=== PATIENT | male | born 1950 | race Caucasian/White ===

== ENCOUNTER 2016-08-11 09:46 | Inpatient (IN) | payer OTHER ==
[~2016-08-11] VITALS: Ht 190.5 cm; Wt 111.3 kg
[2016-08-11 11:32] LABS: HEMATOCRIT 40.8 % (38.0-50.0); MCH 31.3 PG (29.0-34.0); MCHC 33.6 G/DL (30.0-36.0); MCV 93.2 FL (86-99); MEAN PLAT.VOLUME 10.3 uM^3 (9.0-12.4); PLATELET COUNT 279 K/uL (156-360); RBC DIS.WIDTH-CV 15.5 % (11.8-14.6); RBC DIS.WIDTH-SD 49.6 % (39-53); RED BLOOD COUNT 4.38 M/uL (4.00-5.50); WHITE BLOOD COUNT 13.1 K/uL (4.1-10.2)
[2016-08-11 11:45] LABS: CHLORIDE 106 mEq/L (99-109); POTASSIUM 4.4 mEq/L (3.7-5.4); SODIUM 139 mEq/L (136-147)
[2016-08-11 11:46] LABS: GLUCOSE 101 mg/dL (70-99)
[2016-08-11 11:48] LABS: ANION GAP 11 MEQ/L (2-14)
[2016-08-11 11:50] LABS: GFR ESTIMATE (CALCULATED) > 59 mL/min/
[2016-08-11 11:51] LABS: UREA NITROGEN (BUN) 17 mg/dL (9-23)
[2016-08-11 11:59] LABS: TROP-I INTERPRETATION NEGATIVE; TROPONIN-I < 0.01 ng/mL (0.0-0.30)
[2016-08-11] MEDS ORDERED: SIMVASTATIN40 MG PO (14:31)
[2016-08-11] MEDS ORDERED: PLAVIX75 MG PO (14:32)
[2016-08-11] MEDS ORDERED: TRAZODONE HCL300 MG PO (14:32)
[2016-08-11] MEDS ORDERED: OMEPRAZOLE20 MG PO (14:32)
[2016-08-11] MEDS ORDERED: ASPIR 8181 M1 PO (14:32)
[2016-08-11] MEDS ORDERED: PROVENTIL HFA6.7 GM IH (14:33)
[2016-08-11] MEDS ORDERED: SPIRIVA1 INHALATI IH (14:33)
[2016-08-11] MEDS ORDERED: SYMBICORT60 INHALAT IH (14:33)
[2016-08-11 15:36] LABS: CARBON DIOXIDE (BICARBONATE) 26.8 MEQ/L (20-31)
[2016-08-11 18:50] VITALS: BP 119/62
[2016-08-11 23:08] VITALS: BP 132/78
[2016-08-12 08:46] VITALS: BP 140/73
[2016-08-12 22:40] VITALS: BP 145/68
[2016-08-13 07:30] VITALS: BP 133/70
[2016-08-13] MEDS ORDERED: PREDNISONE10 MG PO (08:35)
[2016-08-13] MEDS ORDERED: ZITHROMAX250 MG PO (08:35)
== END 2016-08-13 13:26 | disposition home or self-care (01) | DRG 192 ==
LOC: EME 09:46 → 5EAST 14:53 → EDOF 14:53 → 5EAST 19:02
PROVIDERS: Nurse Practitioner Family
DX: J44.1 Chronic obstructive pulmonary disease with (acute) exacerbation (principal); E78.5 Hyperlipidemia, unspecified; K21.9 Gastro-esophageal reflux disease without esophagitis; I73.9 Peripheral vascular disease, unspecified; Z98.62 Peripheral vascular angioplasty status; Z87.891 Personal history of nicotine dependence; Z88.0 Allergy status to penicillin; Z79.02 Long term (current) use of antithrombotics/antiplatelets; Z79.82 Long term (current) use of aspirin
CPT/HCPCS: 71020; 80048; 82803; 84484; 85027; 93005; 94640; 94640 76; 94799; 99202; 99281; 99285; J0456; J1650; J2920; J2930

== ENCOUNTER → 2017-05-27 | Outpatient (CLI) | payer OTHER ==
[~2017-05-27] VITALS: Ht 193 cm; Wt 113.4 kg
[~2017-05-27] MED LIST: ASPIR 8181 M1 PO; CILOSTAZOL100 MG PO; OMEPRAZOLE20 MG PO; PLAVIX75 MG PO; PREDNISONE10 MG PO; PROVENTIL HFA6.7 GM IH; PROVENTIL,2.5 MG/3 M IH; SIMVASTATIN40 MG PO; SPIRIVA1 INHALATI IH; SYMBICORT60 INHALAT IH; TRAZODONE HCL300 MG PO; VITAMIN D31000 UNIT PO; ZITHROMAX250 MG PO
[2017-05-27 09:35] LABS: METH RESISTANT S AUREUS PCR NEGATIVE (NEGATIVE)
[2017-05-27 09:36] LABS: PROBE CHECK PASS; SPECIMEN PROCESSING CONTROL PASS
== END | disposition home or self-care (01) ==
LOC: SDC 07:31 → AMB 07:31 → EDSTATUS 08:14 → SDC 13:36
PROVIDERS: Thoracic Surgery (Cardiothoracic Vascular Surgery)
DX: L57.0 Actinic keratosis (principal); Z85.828 Personal history of other malignant neoplasm of skin; I10 Essential (primary) hypertension; I25.10 Atherosclerotic heart disease of native coronary artery without angina pectoris; Z87.891 Personal history of nicotine dependence; I73.9 Peripheral vascular disease, unspecified; J44.9 Chronic obstructive pulmonary disease, unspecified; K21.9 Gastro-esophageal reflux disease without esophagitis; E78.5 Hyperlipidemia, unspecified; Z79.52 Long term (current) use of systemic steroids
CPT/HCPCS: 87641; 88305

== ENCOUNTER 2017-11-29 15:04 | Emergency (ER) | payer OTHER ==
[~2017-11-29] VITALS: Ht 193 cm; Wt 118.1 kg
[2017-11-29] MEDS ORDERED: NORCO 5/3251 TABLET PO (17:19)
[2017-11-29 18:00] VITALS: BP 142/80
== END 2017-11-29 18:00 | disposition home or self-care (01) ==
LOC: EME 15:04
DX: S32.058A Other fracture of fifth lumbar vertebra, initial encounter for closed fracture (principal); S50.311A Abrasion of right elbow, initial encounter; V49.50XA Passenger injured in collision with unspecified motor vehicles in traffic accident, initial encounter; Y92.410 Unspecified street and highway as the place of occurrence of the external cause; M41.9 Scoliosis, unspecified; J44.9 Chronic obstructive pulmonary disease, unspecified; I73.9 Peripheral vascular disease, unspecified; Z87.891 Personal history of nicotine dependence; Z79.02 Long term (current) use of antithrombotics/antiplatelets; Z79.82 Long term (current) use of aspirin; Z88.0 Allergy status to penicillin
CPT/HCPCS: 72100; 99281; 99284